=== PATIENT | female | born 1985 | race Caucasian/White ===

== ENCOUNTER 2017-02-26 17:26 | Emergency (ER) | payer MEDICAID ==
[2017-02-26] MEDS: SOD CHLORIDE 0.9% 1,000 ML IV (20:18)
[2017-02-26] MEDS: ONDANSETRON 4 MG INJ IV (20:18)
[2017-02-26 21:17] LABS: ADD MAN DIFF? NO
[2017-02-26 21:19] LABS: BASOPHIL # 0.1 10^3/ul (0.0-0.1); BASOPHILS % 0.5 % (0.0-2.0); EOSINOPHILS # 0.1 10^3/ul (0.0-0.5); EOSINOPHILS % 0.8 % (0.0-7.0); HEMATOCRIT 35.9 % (37.0-47.0); HEMOGLOBIN 11.8 g/dl (12.0-16.0); LYMPHOCYTES # 3.4 10^3/ul (0.8-2.9); LYMPHOCYTES % 20.3 % (15.0-51.0); MEAN CORPUSCULAR HEMOGLOBIN 23.6 pg (29.0-33.0); MEAN CORPUSCULAR HGB CONC 32.9 g/dl (32.0-37.0); MEAN CORPUSCULAR VOLUME 71.7 fl (82.0-101.0); MEAN PLATELET VOLUME 12.2 fl (7.4-10.4); MONOCYTE # 1.1 10^3/ul (0.3-0.9); MONOCYTES % 6.6 % (0.0-11.0); NEUTROPHIL # 12.1 10^3/ul (1.6-7.5); NEUTROPHILS % 71.3 % (39.0-77.0); PLATELET COUNT 292 10^3/UL (140-415); RED BLOOD COUNT 5.01 10^6/ul (4.20-5.40); RED CELL DISTRIBUTION WIDTH 18.1 % (11.5-14.5)
[2017-02-26 21:19] LABS: WHITE BLOOD COUNT 16.9 10^3/ul (4.8-10.8)
[2017-02-26 21:30] LABS: ADD UMIC YES; UR ASCORBIC ACID NEGATIVE (NEGATIVE); UR BILIRUBIN (Dip) NEGATIVE (NEGATIVE); UR BLOOD (Dip) NEGATIVE (NEGATIVE); UR CLARITY CLEAR (CLEAR); UR COLOR YELLOW (YELLOW); UR GLUCOSE (Dip) NEGATIVE (NEGATIVE); UR KETONES (Dip) NEGATIVE (NEGATIVE); UR LEUKOCYTE ESTERASE (Dip) TRACE Leu/ul (NEGATIVE); UR NITRITE (Dip) NEGATIVE (NEGATIVE); UR RBC 1 /HPF (0-5); UR SPECIFIC GRAVITY (Dip) 1.015 (1.003-1.030); UR SQUAMOUS EPITHELIAL CELL FEW /HPF (FEW); UR TOTAL PROTEIN (Dip) NEGATIVE (NEGATIVE); UR UROBILINOGEN (Dip) NEGATIVE (NEGATIVE); UR WBC 2 /HPF (0-5)
[2017-02-26 21:38] LABS: ALANINE AMINOTRANSFERASE 25 IU/L (13-69); ALBUMIN 4.4 g/dl (3.3-4.9); ALBUMIN/GLOBULIN RATIO 1.29; ALKALINE PHOSPHATASE 86 IU/L (42-121); ANION GAP 14 (8-16); ASPARTATE AMINO TRANSFERASE 14 IU/L (15-46); BLOOD UREA NITROGEN 7 mg/dl (7-20); CALCIUM 9.7 mg/dl (8.4-10.2); CARBON DIOXIDE 27 mmol/L (21-31); CHLORIDE 102 mmol/L (97-110); CREATININE 0.49 mg/dl (0.44-1.00); GLUCOSE 98 mg/dl (70-220); POTASSIUM 4.5 mmol/L (3.5-5.1); SODIUM 138 mmol/L (135-144); TOTAL PROTEIN 7.8 g/dl (6.1-8.1)
== END 2017-02-26 23:11 | disposition home or self-care (01) ==
LOC: FTE 17:26
DX: O21.0 Mild hyperemesis gravidarum (principal); O99.281 Endocrine, nutritional and metabolic diseases complicating pregnancy, first trimester; R10.2 Pelvic and perineal pain; E86.0 Dehydration; Z3A.10 10 weeks gestation of pregnancy
CPT/HCPCS: 76801; 80053; 81001; 84702; 85025; 96374; 99285-25

== ENCOUNTER 2017-05-21 12:00 | Outpatient (CLI) | payer MEDICAID ==
[2017-05-21 13:21] LABS: ADD UMIC YES; UR ASCORBIC ACID NEGATIVE (NEGATIVE); UR BACTERIA FEW /HPF (NONE SEEN); UR BILIRUBIN (Dip) NEGATIVE (NEGATIVE); UR BLOOD (Dip) NEGATIVE (NEGATIVE); UR CLARITY CLEAR (CLEAR); UR COLOR STRAW (YELLOW); UR GLUCOSE (Dip) NEGATIVE (NEGATIVE); UR KETONES (Dip) NEGATIVE (NEGATIVE); UR LEUKOCYTE ESTERASE (Dip) 1+ Leu/ul (NEGATIVE); UR NITRITE (Dip) NEGATIVE (NEGATIVE); UR RBC 0 /HPF (0-5); UR SPECIFIC GRAVITY (Dip) 1.008 (1.003-1.030); UR SQUAMOUS EPITHELIAL CELL FEW /HPF (FEW); UR TOTAL PROTEIN (Dip) NEGATIVE (NEGATIVE); UR UROBILINOGEN (Dip) NEGATIVE (NEGATIVE); UR WBC 1 /HPF (0-5)
== END 2017-05-21 14:15 | disposition home or self-care (01) ==
LOC: OBT 12:00 → L-D 12:02 → OBT 14:15
DX: O26.892 Other specified pregnancy related conditions, second trimester (principal); Z3A.22 22 weeks gestation of pregnancy; R10.9 Unspecified abdominal pain
CPT/HCPCS: 81001

== ENCOUNTER 2017-07-13 16:52 | Inpatient (IN) | payer MEDICAID ==
[2017-07-13 18:12] LABS: ADD UMIC YES; UR ASCORBIC ACID NEGATIVE (NEGATIVE); UR BILIRUBIN (Dip) NEGATIVE (NEGATIVE); UR BLOOD (Dip) NEGATIVE (NEGATIVE); UR CLARITY CLEAR (CLEAR); UR COLOR YELLOW (YELLOW); UR GLUCOSE (Dip) NEGATIVE (NEGATIVE); UR KETONES (Dip) NEGATIVE (NEGATIVE); UR LEUKOCYTE ESTERASE (Dip) 1+ Leu/ul (NEGATIVE); UR NITRITE (Dip) NEGATIVE (NEGATIVE); UR RBC 1 /HPF (0-5); UR SQUAMOUS EPITHELIAL CELL FEW /HPF (FEW); UR TOTAL PROTEIN (Dip) NEGATIVE (NEGATIVE); UR UROBILINOGEN (Dip) NEGATIVE (NEGATIVE); UR WBC 2 /HPF (0-5)
[2017-07-13] MEDS: LACTATED RINGER'S 1,000 ML IV ×2 (18:41→20:30)
[2017-07-13] MEDS ORDERED: BETAMET NA PHOS/AC(6 MG/ML) 5ML INJ IM (19:00)
[2017-07-13] MEDS: MAGNESIUM SULFATE 4 GM/100 ML 100 ML IV (20:01)
[2017-07-13] MEDS: BETAMET NA PHOS/AC(6 MG/ML) 5ML INJ IM (20:10)
[2017-07-13] MEDS: MAGNESIUM SULFATE 20 GM/500 ML 500 ML IV (20:29)
[2017-07-13] MEDS ORDERED: CEFAZOLIN 2 GM/50 ML (PMX) 50 ML IV (22:00)
[2017-07-13] MEDS ORDERED: AMPICILLIN 2 GM/NS (PMX) 100 ML (22:13)
[2017-07-13] MEDS: AMPICILLIN 2 GM/NS (PMX) 100 ML IVPB (22:27)
[2017-07-14] MEDS: AMPICILLIN 2 GM/NS (PMX) 100 ML IVPB ×3 (05:57→22:25)
[2017-07-14] MEDS: LACTATED RINGER'S 1,000 ML IV ×2 (05:58→09:45)
[2017-07-14] MEDS: MAGNESIUM SULFATE 20 GM/500 ML 500 ML IV ×2 (05:59→14:10)
[2017-07-14] MEDS: PRENATAL VITAMIN PO (08:11)
[2017-07-14 08:15] LABS: MAGNESIUM 4.7 mg/dl (1.7-2.5)
[2017-07-14 18:30] LABS: MAGNESIUM 5.3 mg/dl (1.7-2.5)
[2017-07-14] MEDS: BETAMET NA PHOS/AC(6 MG/ML) 5ML INJ IM (20:11)
[2017-07-15] MEDS: LACTATED RINGER'S 1,000 ML IV (00:41)
[2017-07-15] MEDS: MAGNESIUM SULFATE 20 GM/500 ML 500 ML IV (00:42)
[2017-07-15] MEDS: AMPICILLIN 2 GM/NS (PMX) 100 ML IVPB (06:05)
[2017-07-15 07:48] LABS: MAGNESIUM 5.2 mg/dl (1.7-2.5)
[2017-07-15] MEDS: PRENATAL VITAMIN PO (09:04)
[2017-07-15] MEDS: ACETAMINOPHEN 325 MG TAB PO (11:00)
== END 2017-07-15 12:10 | disposition home or self-care (01) | DRG 780 ==
LOC: OBT 16:52 → L-D 16:53 → OBT 18:59 → L-D 18:59
PROVIDERS: Obstetrics & Gynecology
DX: O47.03 False labor before 37 completed weeks of gestation, third trimester (principal); Z3A.29 29 weeks gestation of pregnancy
CPT/HCPCS: 36415; 76817; 76818; 81001; 82731; 83735; 96360

== ENCOUNTER 2017-08-05 07:36 | Outpatient (CLI) | payer MEDICAID ==
[2017-08-05] MEDS: LACTATED RINGER'S 1,000 ML IV ×3 (08:15→13:26)
[2017-08-05 08:43] LABS: ADD UMIC YES; UR ASCORBIC ACID NEGATIVE (NEGATIVE); UR BACTERIA FEW /HPF (NONE SEEN); UR BILIRUBIN (Dip) NEGATIVE (NEGATIVE); UR BLOOD (Dip) NEGATIVE (NEGATIVE); UR CLARITY CLEAR (CLEAR); UR COLOR YELLOW (YELLOW); UR GLUCOSE (Dip) NEGATIVE (NEGATIVE); UR KETONES (Dip) NEGATIVE (NEGATIVE); UR LEUKOCYTE ESTERASE (Dip) TRACE Leu/ul (NEGATIVE); UR NITRITE (Dip) NEGATIVE (NEGATIVE); UR RBC 1 /HPF (0-5); UR TOTAL PROTEIN (Dip) NEGATIVE (NEGATIVE); UR UROBILINOGEN (Dip) NEGATIVE (NEGATIVE); UR WBC 1 /HPF (0-5)
[2017-08-05] MEDS ORDERED: TERBUTALINE 1 ML (09:29)
[2017-08-05] MEDS: TERBUTALINE 1 MG/ML INJ SC (09:34)
[2017-08-05] MEDS: ACETAMINOPHEN 500 MG TAB PO (14:10)
== END 2017-08-05 15:15 | disposition home or self-care (01) ==
LOC: OBT 07:36 → L-D 07:36 → OBT 15:15
DX: O62.9 Abnormality of forces of labor, unspecified (principal); Z3A.32 32 weeks gestation of pregnancy
CPT/HCPCS: 36415; 76817; 76818; 81001; 82731; 96360; 96361; 96372

== ENCOUNTER 2017-08-17 07:13 | Inpatient (IN) | payer MEDICAID ==
[2017-08-17] MEDS ORDERED: BETAMET NA PHOS/AC(6 MG/ML) 5ML INJ IM (08:30)
[2017-08-17 09:17] LABS: ADD UMIC YES; UR ASCORBIC ACID NEGATIVE (NEGATIVE); UR BILIRUBIN (Dip) NEGATIVE (NEGATIVE); UR BLOOD (Dip) NEGATIVE (NEGATIVE); UR CLARITY CLEAR (CLEAR); UR COLOR YELLOW (YELLOW); UR GLUCOSE (Dip) NEGATIVE (NEGATIVE); UR KETONES (Dip) NEGATIVE (NEGATIVE); UR LEUKOCYTE ESTERASE (Dip) TRACE Leu/ul (NEGATIVE); UR NITRITE (Dip) NEGATIVE (NEGATIVE); UR RBC 1 /HPF (0-5); UR TOTAL PROTEIN (Dip) NEGATIVE (NEGATIVE); UR UROBILINOGEN (Dip) NEGATIVE (NEGATIVE); UR WBC 1 /HPF (0-5)
[2017-08-17] MEDS: LACTATED RINGER'S 1,000 ML IV (09:41)
[2017-08-17 10:01] LABS: ADD MAN DIFF? NO
[2017-08-17 10:16] LABS: WHITE BLOOD COUNT 12.5 10^3/ul (4.8-10.8)
[2017-08-17 10:16] LABS: BASOPHILS % 0.3 % (0.0-2.0); EOSINOPHILS # 0.1 10^3/ul (0.0-0.5); EOSINOPHILS % 0.6 % (0.0-7.0); HEMOGLOBIN 8.3 g/dl (12.0-16.0); LYMPHOCYTES # 2.6 10^3/ul (0.8-2.9); LYMPHOCYTES % 20.7 % (15.0-51.0); MEAN CORPUSCULAR HGB CONC 30.7 g/dl (32.0-37.0); MEAN CORPUSCULAR VOLUME 65.2 fl (82.0-101.0); MEAN PLATELET VOLUME 11.1 fl (7.4-10.4); MONOCYTE # 0.5 10^3/ul (0.3-0.9); MONOCYTES % 3.8 % (0.0-11.0); NEUTROPHIL # 9.2 10^3/ul (1.6-7.5); PLATELET COUNT 280 10^3/UL (140-415); RED BLOOD COUNT 4.14 10^6/ul (4.20-5.40); RED CELL DISTRIBUTION WIDTH 16.9 % (11.5-14.5)
[2017-08-17 10:24] LABS: ALANINE AMINOTRANSFERASE 17 IU/L (13-69); ALBUMIN 3.6 g/dl (3.3-4.9); ALKALINE PHOSPHATASE 143 IU/L (42-121); ANION GAP 18 (8-16); ASPARTATE AMINO TRANSFERASE 11 IU/L (15-46); BILIRUBIN,INDIRECT 0.4 mg/dl (0-1.1); BILIRUBIN,TOTAL 0.4 mg/dl (0.2-1.3); BLOOD UREA NITROGEN 2 mg/dl (7-20); CALCIUM 8.9 mg/dl (8.4-10.2); CARBON DIOXIDE 23 mmol/L (21-31); CHLORIDE 104 mmol/L (97-110); CREATININE 0.44 mg/dl (0.44-1.00); GLUCOSE 138 mg/dl (70-220); POTASSIUM 3.6 mmol/L (3.5-5.1); SODIUM 141 mmol/L (135-144); TOTAL PROTEIN 6.6 g/dl (6.1-8.1)
[2017-08-17] MEDS: MAGNESIUM SULFATE 4 GM/100 ML 100 ML IV (10:24)
[2017-08-17] MEDS: AMPICILLIN 2 GM/NS (PMX) 100 ML IV (10:50)
[2017-08-17] MEDS: MAGNESIUM SULFATE 20 GM/500 ML 500 ML IV ×2 (10:54→21:00)
[2017-08-17] MEDS: AMPICILLIN 1 GM/NS (PMX) 50 ML IV ×3 (15:13→19:21)
[2017-08-17 19:10] LABS: MAGNESIUM 4.8 mg/dl (1.7-2.5)
[2017-08-18] MEDS: LACTATED RINGER'S 1,000 ML IV ×4 (00:10→11:08)
[2017-08-18] MEDS: AMPICILLIN 1 GM/NS (PMX) 50 ML IV ×4 (00:13→12:59)
[2017-08-18 01:57] LABS: MAGNESIUM 5.2 mg/dl (1.7-2.5)
[2017-08-18] MEDS: MAGNESIUM SULFATE 20 GM/500 ML 500 ML IV (06:13)
[2017-08-18 08:14] LABS: MAGNESIUM 5.3 mg/dl (1.7-2.5)
[2017-08-18 12:18] LABS: MAGNESIUM 5.3 mg/dl (1.7-2.5)
== END 2017-08-18 14:25 | disposition home or self-care (01) | DRG 781 ==
LOC: OBT 07:13 → L-D 07:13 → OBT 07:50 → L-D 07:50 → PP1 10:01
DX: O14.93 Unspecified pre-eclampsia, third trimester (principal); O47.03 False labor before 37 completed weeks of gestation, third trimester; Z3A.34 34 weeks gestation of pregnancy
CPT/HCPCS: 80053; 81001; 83735; 85025; 87086

== ENCOUNTER 2017-09-09 03:25 | Inpatient (IN) | payer MEDICAID ==
[2017-09-09] MEDS ORDERED: LIDOCAINE 1% (MPF) 30 ML INJ INJ (04:00)
[2017-09-09] MEDS ORDERED: METHYLERGONOVINE 0.2 MG INJ IM (04:00)
[2017-09-09] MEDS ORDERED: CARBOPROST 250 MCG INJ IM (04:00)
[2017-09-09] MEDS ORDERED: MISOPROSTOL 200 MCG TAB PR (04:00)
[2017-09-09] MEDS ORDERED: OXYTOCIN 30 UNITS/LR 500 ML IV ×2 (04:00)
[2017-09-09] MEDS ORDERED: IBUPROFEN 600 MG TAB PO (04:00)
[2017-09-09] MEDS: LACTATED RINGER'S 1,000 ML IV (04:02)
[2017-09-09 04:07] LABS: ADD MAN DIFF? NO
[2017-09-09 04:09] LABS: WHITE BLOOD COUNT 10.4 10^3/ul (4.8-10.8)
[2017-09-09 04:09] LABS: ABNORMAL IP MESSAGE 1; BASOPHIL # 0.1 10^3/ul (0.0-0.1); BASOPHILS % 0.5 % (0.0-2.0); EOSINOPHILS # 0.1 10^3/ul (0.0-0.5); EOSINOPHILS % 1.1 % (0.0-7.0); HEMATOCRIT 31.5 % (37.0-47.0); HEMOGLOBIN 9.6 g/dl (12.0-16.0); LYMPHOCYTES # 2.7 10^3/ul (0.8-2.9); LYMPHOCYTES % 26.3 % (15.0-51.0); MEAN CORPUSCULAR HEMOGLOBIN 19.8 pg (29.0-33.0); MEAN CORPUSCULAR HGB CONC 30.5 g/dl (32.0-37.0); MEAN CORPUSCULAR VOLUME 64.9 fl (82.0-101.0); MONOCYTE # 0.8 10^3/ul (0.3-0.9); MONOCYTES % 7.3 % (0.0-11.0); NEUTROPHIL # 6.6 10^3/ul (1.6-7.5); NEUTROPHILS % 63.8 % (39.0-77.0); PLATELET COUNT 301 10^3/UL (140-415); RED BLOOD COUNT 4.85 10^6/ul (4.20-5.40); RED CELL DISTRIBUTION WIDTH 21.2 % (11.5-14.5)
[2017-09-09 04:10] LABS: POSITIVE DIFF @See below
[2017-09-09] MEDS: BUTORPHANOL 2 MG INJ IV (04:16)
[2017-09-09 04:27] LABS: INR 0.82; PROTIME 11.4 Sec (11.9-14.9); PT RATIO 0.9
[2017-09-09 04:28] LABS: PARTIAL THROMBOPLASTIN TIME 24.1 Sec (25.0-35.0)
[2017-09-09] MEDS ORDERED: FENTAnyl 2MCG/ML-ROPIV 0.2% 100 ML (04:39)
[2017-09-09] MEDS: AMPICILLIN 2 GM/NS (PMX) 100 ML IV (04:49)
[2017-09-09 05:13] LABS: HEPATITIS B SURFACE ANTIGEN NEGATIVE (NEGATIVE)
[2017-09-09] MEDS ORDERED: NALOXONE (0.4 MG/ML) INJ IV ×2 (05:30→23:30)
[2017-09-09] MEDS: AMPICILLIN 1 GM/NS (PMX) 50 ML IV ×4 (08:52→20:38)
[2017-09-09] MEDS: LACTATED RINGER'S 1,000 ML IV* ×3 (09:51→19:43)
[2017-09-09] MEDS: FENTAnyl 2MCG/ML-ROPIV 0.2% 100 ML BAG EPI ×2 (12:40→20:38)
[2017-09-09 14:58] LABS: RAPID PLASMA REAGIN NONREACTIVE (NR)
[2017-09-09] MEDS ORDERED: CITRIC ACID/SODIUM CITRATE 15 ML CUP (21:47)
[2017-09-09] MEDS ORDERED: FAMOTIDINE 20 MG INJ (21:49)
[2017-09-09] MEDS ORDERED: METOCLOPRAMIDE 10 MG INJ (21:49)
[2017-09-09] MEDS: METOCLOPRAMIDE 10 MG INJ IV (21:55)
[2017-09-09] MEDS: FAMOTIDINE 20 MG INJ IV (21:55)
[2017-09-09] MEDS: CITRIC ACID/SODIUM CITRATE 15 ML CUP PO (21:56)
[2017-09-09] MEDS ORDERED: PROCHLORPERAZINE 10 MG INJ IV (22:00)
[2017-09-09] MEDS ORDERED: MEPERIDINE 25 MG INJ IV (22:00)
[2017-09-09] MEDS ORDERED: KETOROLAC 30 MG INJ IV (22:00)
[2017-09-09] MEDS ORDERED: HYDROmorphONE 1 MG/5 ML IV SYRINGE IV ×3 (22:00)
[2017-09-09] MEDS ORDERED: FENTAnyl 50 MCG/ML VIAL IV (22:00)
[2017-09-09] MEDS ORDERED: DIPHENHYDRAMINE 50 MG INJ IV (22:00)
[2017-09-09] MEDS: CEFAZOLIN 2 GM/50 ML (PMX) 50 ML IVPB (22:00)
[2017-09-09] MEDS ORDERED: ONDANSETRON 4 MG INJ IV ×2 (22:00→23:30)
[2017-09-09] MEDS ORDERED: PHENYLephrine (100 MCG/ML) 5ML SYG (22:13)
[2017-09-09] MEDS ORDERED: MIDAZOLAM 1 MG/ML 2 ML INJ (22:34)
[2017-09-09] MEDS ORDERED: morphine SULFATE/PF (10 MG/10 ML) INJ (22:35)
[2017-09-09] MEDS ORDERED: ONDANSETRON 4 MG INJ (22:35)
[2017-09-09] MEDS ORDERED: SODIUM BICARBONATE (IV ADD) 50 ML (22:41)
[2017-09-09] MEDS ORDERED: LIDOCAINE 1.5%/EPI MPF (SDV) 30 ML VIAL (22:41)
[2017-09-09] MEDS ORDERED: OXYTOCIN 30 UNITS/LR 1,000 ML IV (22:42)
[2017-09-09] MEDS: OXYTOCIN 30 UNITS/LR 500 ML IV (23:00)
[2017-09-09] MEDS ORDERED: ZOLPIDEM 5 MG TAB PO (23:30)
[2017-09-09] MEDS ORDERED: HYDROmorphONE 0.5 MG/0.5 ML SYG IV (23:30)
[2017-09-09] MEDS: HYDROmorphONE 0.5 MG/0.5 ML SYG IV (23:33)
[2017-09-10] MEDS: OXYTOCIN 30 UNITS/LR 500 ML IV (01:19)
[2017-09-10] MEDS ORDERED: NACL 0.9% 3 ML SYG IV (01:30)
[2017-09-10] MEDS ORDERED: NA PHOSPHATE/BIPHOS 133 ML ENEMA PR (01:30)
[2017-09-10] MEDS ORDERED: OXYTOCIN 30 UNITS/LR 500 ML IV (01:30)
[2017-09-10] MEDS ORDERED: METHYLERGONOVINE 0.2 MG INJ IM (01:30)
[2017-09-10] MEDS ORDERED: CARBOPROST 250 MCG INJ IM (01:30)
[2017-09-10] MEDS ORDERED: MISOPROSTOL 200 MCG TAB PR (01:30)
[2017-09-10] MEDS: LACTATED RINGER'S 1,000 ML IV ×4 (02:43→17:16)
[2017-09-10] MEDS: DIPHENHYDRAMINE 50 MG INJ IV (03:18)
[2017-09-10] MEDS: LANOLIN 7 GM TUBE TOP (08:41)
[2017-09-10] MEDS: KETOROLAC 30 MG INJ IV ×2 (08:41→21:56)
[2017-09-10] MEDS: IBUPROFEN 800 MG TAB PO (22:46)
[2017-09-11] MEDS: HYDROCODONE/APAP (5/325) TAB PO ×3 (05:04→23:49)
[2017-09-11] MEDS: IBUPROFEN 800 MG TAB PO ×3 (05:42→21:42)
[2017-09-11 08:13] LABS: ADD MAN DIFF? NO
[2017-09-11 08:17] LABS: ABNORMAL IP MESSAGE 1; BASOPHIL # 0.1 10^3/ul (0.0-0.1); BASOPHILS % 0.3 % (0.0-2.0); EOSINOPHILS # 0.2 10^3/ul (0.0-0.5); EOSINOPHILS % 1.1 % (0.0-7.0); HEMATOCRIT 26.3 % (37.0-47.0); HEMOGLOBIN 7.8 g/dl (12.0-16.0); LYMPHOCYTES # 2.7 10^3/ul (0.8-2.9); LYMPHOCYTES % 17.3 % (15.0-51.0); MEAN CORPUSCULAR HEMOGLOBIN 19.5 pg (29.0-33.0); MEAN CORPUSCULAR HGB CONC 29.7 g/dl (32.0-37.0); MEAN CORPUSCULAR VOLUME 65.8 fl (82.0-101.0); MEAN PLATELET VOLUME 11.1 fl (7.4-10.4); MONOCYTE # 0.9 10^3/ul (0.3-0.9); MONOCYTES % 5.5 % (0.0-11.0); NEUTROPHIL # 11.9 10^3/ul (1.6-7.5); NEUTROPHILS % 75.2 % (39.0-77.0); PLATELET COUNT 259 10^3/UL (140-415); RED CELL DISTRIBUTION WIDTH 20.9 % (11.5-14.5)
[2017-09-11 08:17] LABS: WHITE BLOOD COUNT 15.8 10^3/ul (4.8-10.8)
[2017-09-11] MEDS: FERROUS SULFATE (EC) 325 MG TAB PO (20:42)
[2017-09-12] MEDS: IBUPROFEN 800 MG TAB PO ×2 (05:54→13:37)
[2017-09-12] MEDS: HYDROCODONE/APAP (5/325) TAB PO (06:53)
[2017-09-12 08:09] LABS: ADD MAN DIFF? NO
[2017-09-12 08:12] LABS: WHITE BLOOD COUNT 12.8 10^3/ul (4.8-10.8)
[2017-09-12 08:12] LABS: BASOPHIL # 0.1 10^3/ul (0.0-0.1); BASOPHILS % 0.4 % (0.0-2.0); EOSINOPHILS # 0.3 10^3/ul (0.0-0.5); HEMATOCRIT 27.1 % (37.0-47.0); HEMOGLOBIN 8.1 g/dl (12.0-16.0); LYMPHOCYTES % 23.3 % (15.0-51.0); MEAN CORPUSCULAR HGB CONC 29.9 g/dl (32.0-37.0); MEAN CORPUSCULAR VOLUME 66.7 fl (82.0-101.0); MEAN PLATELET VOLUME 10.9 fl (7.4-10.4); MONOCYTE # 0.7 10^3/ul (0.3-0.9); MONOCYTES % 5.2 % (0.0-11.0); NEUTROPHIL # 8.8 10^3/ul (1.6-7.5); NEUTROPHILS % 68.4 % (39.0-77.0); PLATELET COUNT 281 10^3/UL (140-415); RED BLOOD COUNT 4.06 10^6/ul (4.20-5.40); RED CELL DISTRIBUTION WIDTH 20.2 % (11.5-14.5)
[2017-09-12] MEDS: FERROUS SULFATE (EC) 325 MG TAB PO ×2 (08:55→13:37)
[2017-09-12] MEDS: PRENATAL VITAMIN PO (08:55)
[2017-09-12] MEDS: MEASLES,MUMPS,RUBELLA VACCINE INJ SC* (09:00)
[2017-09-12] MEDS: DIPHTH/TET/ACEL PERTUSS (ADULT) 0.5 ML VIAL IM* (10:40)
== END 2017-09-12 17:40 | disposition home or self-care (01) | DRG 766 ==
LOC: OBT 03:25 → PP1 09-10 01:15 → L-D 03:25 → OBT 03:45 → L-D 03:45
PROVIDERS: Obstetrics & Gynecology
PROC: 10D00Z1 Extraction of Products of Conception, Low, Open Approach (ICD-10-PCS; principal; 2017-09-09 22:00)
DX: O34.211 Maternal care for low transverse scar from previous cesarean delivery (principal); Z3A.37 37 weeks gestation of pregnancy; Z37.0 Single live birth
CPT/HCPCS: 62319; 85025; 85610; 85730; 86592; 86850; 86900; 86901; 87340; 88307; 90715; 99464

== ENCOUNTER 2018-07-27 19:39 | Emergency (ER) | payer MEDICAID ==
[2018-07-27] MEDS: SOD CHLORIDE 0.9% 1,000 ML IV (21:53)
[2018-07-27] MEDS: ONDANSETRON 4 MG INJ IV (21:53)
[2018-07-27] MEDS: morphine 2 MG INJ IV (21:54)
[2018-07-27 21:56] LABS: ADD MAN DIFF? NO
[2018-07-27 22:01] LABS: ADD UMIC NO; UR ASCORBIC ACID NEGATIVE (NEGATIVE); UR BILIRUBIN (Dip) NEGATIVE (NEGATIVE); UR BLOOD (Dip) NEGATIVE (NEGATIVE); UR CLARITY CLEAR (CLEAR); UR COLOR YELLOW (YELLOW); UR GLUCOSE (Dip) NEGATIVE (NEGATIVE); UR KETONES (Dip) NEGATIVE (NEGATIVE); UR LEUKOCYTE ESTERASE (Dip) NEGATIVE Leu/ul (NEGATIVE); UR NITRITE (Dip) NEGATIVE (NEGATIVE); UR SPECIFIC GRAVITY (Dip) 1.017 (1.003-1.030); UR TOTAL PROTEIN (Dip) NEGATIVE (NEGATIVE); UR UROBILINOGEN (Dip) NEGATIVE (NEGATIVE)
[2018-07-27 22:07] LABS: BASOPHIL # 0.1 10^3/ul (0.0-0.1); BASOPHILS % 0.5 % (0.0-2.0); EOSINOPHILS # 0.2 10^3/ul (0.0-0.5); EOSINOPHILS % 1.6 % (0.0-7.0); HEMATOCRIT 31.2 % (37.0-47.0); HEMOGLOBIN 9.4 g/dl (12.0-16.0); LYMPHOCYTES # 3.9 10^3/ul (0.8-2.9); LYMPHOCYTES % 30.7 % (15.0-51.0); MEAN CORPUSCULAR HEMOGLOBIN 19.7 pg (29.0-33.0); MEAN CORPUSCULAR HGB CONC 30.1 g/dl (32.0-37.0); MEAN CORPUSCULAR VOLUME 65.5 fl (82.0-101.0); MEAN PLATELET VOLUME 11.3 fl (7.4-10.4); MONOCYTE # 0.7 10^3/ul (0.3-0.9); MONOCYTES % 5.5 % (0.0-11.0); NEUTROPHIL # 7.7 10^3/ul (1.6-7.5); NEUTROPHILS % 61.2 % (39.0-77.0); PLATELET COUNT 311 10^3/UL (140-415); RED BLOOD COUNT 4.76 10^6/ul (4.20-5.40); RED CELL DISTRIBUTION WIDTH 17.6 % (11.5-14.5)
[2018-07-27 22:07] LABS: WHITE BLOOD COUNT 12.6 10^3/ul (4.8-10.8)
[2018-07-27 22:15] LABS: ALANINE AMINOTRANSFERASE 22 IU/L (13-69); ALBUMIN 4.1 g/dl (3.3-4.9); ALBUMIN/GLOBULIN RATIO 1.28; ALKALINE PHOSPHATASE 76 IU/L (42-121); ANION GAP 9 (5-13); ASPARTATE AMINO TRANSFERASE 17 IU/L (15-46); BILIRUBIN,INDIRECT 0.3 mg/dl (0-1.1); BILIRUBIN,TOTAL 0.3 mg/dl (0.2-1.3); BLOOD UREA NITROGEN 10 mg/dl (7-20); CALCIUM 8.8 mg/dl (8.4-10.2); CARBON DIOXIDE 26 mmol/L (21-31); CHLORIDE 106 mmol/L (97-110); CREATININE 0.63 mg/dl (0.44-1.00); Estimated GFR > 60 mL/min (>60); GLUCOSE 134 mg/dl (70-220); LIPASE 64 U/L (23-300); POTASSIUM 3.9 mmol/L (3.5-5.1); SODIUM 141 mmol/L (135-144); TOTAL PROTEIN 7.3 g/dl (6.1-8.1)
== END 2018-07-28 01:56 | disposition home or self-care (01) ==
LOC: FTE 07-28 01:56
DX: N83.201 Unspecified ovarian cyst, right side (principal); D64.9 Anemia, unspecified
CPT/HCPCS: 36415; 74176; 76856; 80053; 81003; 83690; 84703; 85025; 96374; 96375; 99285-25